=== PATIENT | male | born 1975 | race Caucasian/White ===

== ENCOUNTER 2020-04-26 08:45 | Outpatient (CLI) | payer BC ==
[2020-04-26] MEDS ORDERED: Magnevist 469MG/ML 20 ML VIAL ONE (09:42)
[2020-04-26] MEDS ORDERED: EPINEPHrine 1 MG/ML AMP ONE (10:00)
[2020-04-26] MEDS ORDERED: Gadobenate Dimeglumine 529 MG/1 ML (20ML VIAL) ONE (10:00)
[2020-04-26] MEDS ORDERED: Iopamidol 300 61% 50 ML VIAL FS ONE (10:00)
[2020-04-26] MEDS ORDERED: Lidocaine 1% PF 10 ML AMP ONE (10:00)
--- NOTE | 2020-04-26 10:51 | RAD ---
RIGHT SHOULDER ARTHROGRAM: HISTORY: Traumatic complete tear of right rotator cuff. 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 Jacky ohumeral joint space is preserved. Successful right shoulder arthrogram. A total of 13 cc of the contrast admixture was administered to the joints. TECHNIQUE: Consent was obtained to perform a right shoulder arthrogram. Right shoulder was prepped and draped in a sterile fashion. 1% lidocaine, buffered with sodium bicarbonate was used for local anesthesia. Under fluoroscopic guidance, a 22-gauge spinal needle was advanced into the right shoulder joint spac e. A total of 13 cc of the contrast was administered. Patient tolerated the procedure well. No immediate or postprocedure complications. IMPRESSION: Successful right shoulder arthrogram. Refer to separate post arthrogram MRI report. Transcribed Date/Time: 04/26/2020 10:59 AM
--- NOTE | 2020-04-26 14:23 | MRI ---
MR ARTHROGRAM OF THE RIGHT SHOULDER: INDICATION: History of right shoulder pain. COMPARISON: Right shoulder arthrogram radiographs dated 04/26/2020. TECHNIQUE: Multiplanar, multisequence MR images were obtained of the right shoulder following the intraarticular administration of dilute Gadolinium solution. Please see the separately dictated right shoulder art hrogram concerning the details of the injection technique. FINDINGS: There is a small divot involving the posterior superior aspect humeral head on image 12 of series 3 w hich may reflect sequelae of prior Hill-Sach's deformity. The visualized aspects of the anterior inf erior glenohumeral labral ligamentous complex appears intact. Glenohumeral articular surface is norm al-appearing. Posterior, superior, and anterior glenoid labrum appear intact. The biceps anchor com plex appears intact. The rotator cuff is intact. No full-thickness tear is evident. Very trace chaz unt of fluid is seen within the subacromial subdeltoid bursa, some of which may be related to injecti on technique. There is mild AC joint osteoarthrosis with a type II acromion. No os acromiale is niraj dent. No muscular atrophy is demonstrated. IMPRESSION: 1. Findings suspicious for a remote Hill-Sachs deformity. Visualized aspects of the glenoid labrum appear intact. The patient could not tolerate an ABER view; therefore, no images were provided from that series. The anterior inferior glenohumeral labral ligamentous complex and anterior glenoid sebastien in appear intact. Glenohumeral articular surface is normal-appearing. 2. Mild acromioclavicular joint osteoarthrosis. POS: BH
== END 2020-04-26 08:46 | disposition home or self-care (01) ==
LOC: RAD 08:45
PROVIDERS: ATTEND Orthopaedic Surgery
DX: S46.011A Strain of muscle(s) and tendon(s) of the rotator cuff of right shoulder, initial encounter (principal); M19.011 Primary osteoarthritis, right shoulder
CPT/HCPCS: 23350; A9577; A9579; J0171; J2001; Q9967